=== PATIENT | male | born 1960 ===

== ENCOUNTER 2017-09-07 07:35 | Emergency (ER) | payer BC ==
[2017-09-07 07:55] VITALS: BP 121/69
--- NOTE | 2017-09-07 08:26 | UC ---
Respiratory Complaint HPI - HPI Summary HPI Summary: 4 DAYS OF PRODUCTIVE COUGH, SCRATCHY THROAT AND SLIGHT NASAL DISCHARGE. NO FEVER , EAR PAIN, N/V/D. NO SHORTNESS OF BREATH, WHEEZE, DIZZINESS. COUGH IS KEEPING HIM UP AT NIGHT. RETURNED FROM [place] ABOUT 10 DAYS AGO. - History of Current Complaint Chief Complaint: UCRespiratory Stated Complaint: SORE THROAT Time Seen by Provider: 09/07/17 08:10 Hx Obtained From: Patient Onset/Duration: Gradual Onset, Lasting Days, Still Present Severity Initially: Moderate Severity Currently: Moderate Pain Intensity: 0 Pain Scale Used: 0-10 Numeric Character: Cough: Productive Aggravating Factors: Recumbent Position Alleviating Factors: Nothing Associated Signs And Symptoms: Positive: URI, Nasal Congestion. Negative: Dyspnea, Fever, Pleuritic Chest Pain, Wheezing, Hemoptysis, Dizziness - Allergies/Home Medications Allergies/Adverse Reactions: Allergies Allergy/AdvReac Type Severity Reaction Status Date / Time No Known Allergies Allergy Verified 09/07/17 07:51 Home Medications: Home Medications Atorvastatin* [Lipitor 20 MG*] 09/07/17 [History] PMH/Surg Hx/FS Hx/Imm Hx Endocrine History: Diabetes, Dyslipidemia - Surgical History Surgical History: None - Family History Known Family History: Negative: Hypertension - Social History Alcohol Use: Daily Alcohol Amount: glass wine/day Substance Use Type: None Smoking Status (MU): Former Smoker Type: Cigarettes Amount Used/How Often: social smoker Household Exposure Type: Cigarettes Review of Systems Constitutional: Negative ENT: Sore Throat, Nasal Discharge Respiratory: Cough Cardiovascular: Negative Gastrointestinal: Negative All Other Systems Reviewed And Are Negative: Yes Physical Exam Triage Information Reviewed: Yes Appearance: Well-Appearing, No Pain Distress, Well-Nourished Vital Signs: Initial Vital Signs Temp 97.5 F 09/07/17 07:51 Pulse 81 09/07/17 07:51 Resp 16 09/07/17 07:51 BP 121/69 09/07/17 07:51 Pulse Ox 99 09/07/17 07:51 Vital Signs Reviewed: Yes Eyes: Positive: Conjunctiva Clear ENT: Positive: Hearing grossly normal, Pharynx normal, TMs normal Neck: Positive: Supple, Nontender, No Lymphadenopathy Respiratory Exam: Normal Cardiovascular Exam: Normal Abdomen Description: Positive: Soft Musculoskeletal: Positive: No Edema Neurological: Positive: Alert Psychological: Positive: Age Appropriate Behavior Skin: Negative: rashes UC Diagnostic Evaluation - Laboratory O2 Sat by Pulse Oximetry: 99 Respiratory Course/Dx - Differential Dx/Diagnosis Provider Diagnoses: ACUTE URI Discharge - Discharge Plan Condition: Stable Disposition: HOME Prescriptions: Azithromycin [Azithromycin 500 MG TAB] 500 mg PO DAILY #5 tab Guaifenesin-Codeine [Codeine/Guaifenesin 100-10 mg/5Ml] 5 - 10 ml PO Q6H PRN # 150 ml MDD 40ML PRN Reason: Cough Patient Education Materials: Upper Respiratory Infection (ED) Referrals: Hernan Milan MD [Primary Care Provider] - If Needed Additional Instructions: YOUR SYMPTOMS ARE LIKELY VIRALLY MEDIATED AND SHOULD RESOLVE ON THEIR OWN WITH TIME. REST, HYDRATE, OTC MEDS NEEDED. WILL TREAT WITH COUGH MEDICINE. IF YOU ARE NOT IMPROVING OVER THE NEXT SEVERAL DAYS GO AHEAD AND FILL RX FOR ANTIBIOTICS. IF YOU START THE ANTIBIOTIC TAKE IT FOR THE FULL COURSE. GO TO THE ER WITHOUT FAIL IF YOU DEVELOP SHORTNESS OF BREATH, CHEST PAIN, FEVER , NAUSEA, DIZZINESS OR ANY OTHER CONCERNING SYMPTOMS.
== END 2017-09-07 08:30 | disposition home or self-care (01) ==
LOC: UCEAST 07:35
DX: J06.9 Acute upper respiratory infection, unspecified (principal); E11.9 Type 2 diabetes mellitus without complications; E78.5 Hyperlipidemia, unspecified; Z87.891 Personal history of nicotine dependence
CPT/HCPCS: 99211; G0463